=== PATIENT | female | born 1990 | race African-American/Black ===

== ENCOUNTER 2019-09-28 20:25 | Inpatient (IN) | payer BC ==
[~2019-09-28] VITALS: Ht 180.3 cm; Wt 117.5 kg
[2019-09-28 20:44] VITALS: BP 135/89; Ht 180.3 cm; Wt 117.5 kg
[2019-09-28 22:46] LABS: HEMATOCRIT 36.4 % (36.0-48.0); HEMOGLOBIN 12.1 g/dL (12-16); MCH 30.6 pg (26.0-34.0); MCHC 33.2 g/dL (31.0-37.0); MCV 92.2 fL (80.0-100.0); MEAN PLATELET VOLUME 10.1 fL (7.4-10.4); RBC 3.95 10x6/uL (4.00-5.40); RDW 13.7 % (11.5-14.5); WBC 10.4 10x3/uL (4.8-10.8)
[2019-09-29 07:40] LABS: BILIRUBIN NEGATIVE (NEGATIVE); EPITHELIAL CELLS 0-5 /hpf (0-5); GLUCOSE NEGATIVE (NEGATIVE); KETONE NEGATIVE (NEGATIVE); NITRITE NEGATIVE (NEGATIVE); SPECIFIC GRAVITY 1.015 (1.005-1.020); UROBILINOGEN NORMAL (NORMAL); WHITE CELLS - URINE 25-50 /hpf (NEGATIVE)
[2019-09-29 07:41] LABS: BACTERIA MODERATE /hpf (NEGATIVE); CALCIUM OXALATE CRYSTALS OCC /hpf (NONE SEEN); YEAST >1+ WITH HYPHAE /hpf (NONE SEEN)
--- NOTE | 2019-09-29 19:19 | NUR ---
PT , ASSISTED PER REQUEST. NO FURTHER NEEDS IDENTIFIED. WILL COME BACK FOR SHIFT ASSESSMENT
--- NOTE | 2019-09-29 20:02 | NUR ---
PATIENT CONTINUES TO BREAST FEED, DENIES PAIN OR NEEDS. WILL COME BACK FOR ASSESSMENT.
[2019-09-29 20:30] VITALS: BP 99/58
--- NOTE | 2019-09-29 20:30 | NUR ---
SHIFT ASSESSMENT COMPLETED, SEE FLOWSHEET
--- NOTE | 2019-09-29 21:15 | NUR ---
MEDICATION ADMINISTERED PER MD ORDERS, SEE EMAR
--- NOTE | 2019-09-29 22:58 | NUR ---
PT SITTING UP IN BED, ATTEMPTING TO BREASTFEED. NURSERY CALLED PER PT REQUEST. NO NEEDS IDENTIFIED. WILL CONTINUE TO MONITOR
--- NOTE | 2019-09-30 00:45 | NUR ---
PATIENT . DENIES NEED FOR PAIN MEDICINE. WILL CONTINUE TO MONITOR
--- NOTE | 2019-09-30 01:45 | NUR ---
INFANT TO NURSERY VIA OPEN CRIB SO PT CAN GET SOME REST
--- NOTE | 2019-09-30 03:34 | NUR ---
PATIENT SLEEPING WITH AUDIBLE SNORING.
--- NOTE | 2019-09-30 04:24 | NUR ---
PT ATTEMPTING TO BREASTFEED. NURSERY CALLED FOR ASSISTANCE PER PT REQUEST. DENIES NEED FOR PAIN MEDICATION OR OTHER NEEDS AT THIS TIME. WILL CONTINUE TO MONITOR
[2019-09-30 05:08] LABS: RAPID PLASMA REAGIN Non Reactive (Non Reactive)
[2019-09-30 05:16] LABS: BASOPHILS 0.1 % (0-2); EOSINOPHILS 0.7 % (0-7); HEMOGLOBIN 10.6 g/dL (12-16); IMMATURE GRANULOCYTES 0.5 % (0-5); LYMPHOCYTES 14.9 % (15-50); MCH 30.3 pg (26.0-34.0); MCHC 33.1 g/dL (31.0-37.0); MCV 91.4 fL (80.0-100.0); MEAN PLATELET VOLUME 9.8 fL (7.4-10.4); MONOCYTES 9.1 % (2-11); NEUTROPHILS 74.7 % (40-80); PLATELET COUNT 125 10x3/uL (130-400); RDW 13.6 % (11.5-14.5)
[2019-09-30 05:18] LABS: WBC 15.1 10x3/uL (4.8-10.8)
--- NOTE | 2019-09-30 06:45 | NUR ---
PT SITTING UP IN BED, DENIES NEEDS AT THIS TIME. WILL CONTINUE TO MONITOR
[2019-09-30 07:55] VITALS: BP 108/65
--- NOTE | 2019-09-30 08:03 | NUR ---
ASSESSMENT DONE. PT AWAKE AND SITTING UP IN BED INFANT AT BREAST. VERBAL RESPONSES APPRO TO QUESTIONS. ACOSTA AT WILL. STATES VOIDING WITHOUT PROBLEMS BUT DOES HAVE STINGING WHEN VOIDS. FUNDUS U1/FIRM. SCANT LOCHIA NOTED ON PAD.
--- NOTE | 2019-09-30 09:48 | NUR ---
AWAKE- LINENS TO ROOM AND SHOWER SUPPIES. STATES SHE WILL CALL WHEN READY TO GET IN SHOWER.
--- NOTE | 2019-09-30 10:38 | NUR ---
SHOWER DONE- LINENS CHANGED. TOLERATED WELL.
--- NOTE | 2019-09-30 11:15 | NUR ---
PT REQUESTS ICE PACK FOR INCISON, PROVIDED.
[2019-09-30 13:13] VITALS: BP 117/52
--- NOTE | 2019-09-30 13:13 | NUR ---
sitting up in bed. ate reg diet. baby in room. denies needs.
--- NOTE | 2019-09-30 18:00 | NUR ---
sitting up in bed. states that is doing fine- denies needs.
[2019-09-30 19:51] VITALS: BP 128/63
--- NOTE | 2019-09-30 19:51 | NUR ---
RN TO PT BEDSIDE, VSS. PT STATES PAIN IS 1/10 TO PERINEUM. FUNDUS FIRM, MIDLINE, 2 BELOW, SCANT RUBRA LOCHIA TO PERINEUM. PT PROVIDED ICE PACK FOR PERINEUM. PT STATES ALL OTHER NEEDS MET. CALL LIGHT WITHIN REACH. BED IN LOWEST POSITION, SIDE RAILS UP X2.
--- NOTE | 2019-10-01 00:41 | NUR ---
RN TO PT BEDSIDE, ROUNDING, PT REQUESTS RN TO TAKE TO NURSERY. RN OUT OF ROOM WITH INFANT TO NURSERY. PT WITHOUT ANY OTHER NEEDS AT THIS TIME. BED IN LOWEST POSITION, SIDE RAILS UPX2, CALL LIGHT IN REACH.
--- NOTE | 2019-10-01 04:01 | NUR ---
RN TO PT BEDSIDE FOR ROUNDING, PT CURRENTLY SLEEPING, FOB AT BEDSIDE, IN NURSERY AT THIS TIME. NO NEEDS AT THIS TIME.
[2019-10-01 06:35] VITALS: BP 100/58
--- NOTE | 2019-10-01 06:35 | NUR ---
RN TO PT BEDSIDE, PT COMPLAINS OF RAPID HR, VS: BP- 100/58, HR- 160, SPO2- 98%, PT STATES THAT THIS IS A KNOWN ISSUE AND SHE HAS SEEN A DOCTOR FOR THE ISSUE DURING THIS , WILL REPORT FINDINGS TO .
--- NOTE | 2019-10-01 06:43 | NUR ---
RN CALLED DR. GARCÍA ABOUT HR IN THE 160'S, ORDER TO RETAKE HR IN 1 HR, AND CALL DR. GARCÍA BACK IF HR CONTINUES TO REMAIN HIGH.
[2019-10-01 07:33] VITALS: BP 109/63
--- NOTE | 2019-10-01 07:44 | NUR ---
AM ASSESSMENT COMPLETED, VSS, AFEBRILE, RESP EVEN AND UNLABORED, HEART RRR WITH APICAL RATE 90. 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 INFANT IN ARMS, +BONDING NOTED. SIGNIFICANT OTHER AT BS ALSO PROVIDING JONAS TO PT PRN. ABD SOFT, FUNDUS FIRM AT U/2 AND MIDLINE, LOCHIA RUBRA MODERATE AMOUNT, DENIES CLOTS, VOIDING WITHOUT DIFFICULTY, NEGATIVE VENTURA'S SIGN B LE, ACOSTA FREELY. SALINE LOCK TO RIGHT HAND BENIGN TO INSPECTION, CALL LIGHT IN EASY REACH. NAD NOTED. WILL MONITOR.
--- NOTE | 2019-10-01 08:10 | NUR ---
ROUNDS COMPLETED, DENIES NEEDS OR CONCERNS, SO AT BS WITH PT. CALL LIGHT IN EASY REACH OF PT. WILL MONITOR.
--- NOTE | 2019-10-01 09:00 | NUR ---
ROUNDS COMPLETED, SCHEDULED TYLENOL GIVEN ALONG WITH TDAP VACCINE PER REQUEST. PT STATES RECEIVED FLU VACCINE ONE MONTH AGO IN THE CLINIC. DENIES NEEDS OR CONCERNS, INFANT IN ARMS, NAD NOTED. WILL MONITOR.
--- NOTE | 2019-10-01 10:15 | NUR ---
rounds completed, denies needs or concerns, will monitor for change in condition.
--- NOTE | 2019-10-01 11:20 | NUR ---
rounds completed, cup of ice provided upon request. no other needs voiced, will monitor.
--- NOTE | 2019-10-01 12:20 | NUR ---
ROUNDS COMPLETED, NAD NOTED. SPOUSE AT BS WITH PT. DENIES NEEDS OR CONCERNS. WILL MONITOR.
--- NOTE | 2019-10-01 13:27 | NUR ---
DISCHARGE INSTRUCTIONS REVIEWED WITH PT AND PT SPOUSE, HANDOUTS PROVIDED FOR REVIEW ONCE HOME, ALL QUESTIONS ANSWERED, PT AND PT SPOUSE STATE UNDERSTANDING OF ALL INFORMATION RELAYED. SALINE LOCK TO RIGHT HAND DISCONTINUED, CATHETER TIP INTACT, PRESSURE DRESSING APPLIED TO SITE WITH CLEAR TAPE SECURING. PT TOLERATES PROCEDURE WELL. CALL LIGHT IN EASY REACH, WILL MONITOR FOR CHANGE IN CONDITION.
--- NOTE | 2019-10-01 14:00 | NUR ---
PT READY FOR DISCHARGE. DISCHARGED WITH INFANT VIA WHEELCHAIR PER THIS NURSE TO PRIVATE VEHICLE. PT SECURES IN CARSEAT. BOTH FADI WELL.
== END 2019-10-01 14:00 | disposition home or self-care (01) | DRG 807 ==
LOC: D.LD 20:25
PROVIDERS: ADMIT Obstetrics & Gynecology; ATTEND Obstetrics & Gynecology
PROC: 10D07Z6 Extraction of Products of Conception, Vacuum, Via Natural or Artificial Opening (ICD-10-PCS; principal; 2019-09-29)
PROC: 0HQ9XZZ Repair Perineum Skin, External Approach (ICD-10-PCS; 2019-09-29)
DX: O99.824 Streptococcus B carrier state complicating childbirth (principal); Z37.0 Single live birth; Z3A.40 40 weeks gestation of pregnancy; O71.4 Obstetric high vaginal laceration alone; O75.89 Other specified complications of labor and delivery; R00.0 Tachycardia, unspecified